=== PATIENT | male | born 1960 | race Caucasian/White ===

== ENCOUNTER 2023-12-29 21:03 | Emergency (ER) | payer SELFPAY ==
[2023-12-29] MEDS ORDERED: LORazepam 2 MG/ML SDV IVPUSH PRN (21:05)
[2023-12-29 21:13] LABS: BASOPHILS ABSOLUTE AUTO 0.06 K/uL (0.00-0.20); BASOPHILS PERCENT AUTO 0.7 % (0.0-1.0); EOSINOPHILS ABSOLUTE AUTO 0.08 K/uL (0.00-0.45); HEMATOCRIT 42.7 % (42.0-52.0); HEMOGLOBIN 14.3 g/dL (14.0-18.0); IMMATURE GRAN ABSOLUTE AUTO 0.11 K/uL (0.00-0.05); IMMATURE GRAN PERCENT AUTO 1.3 % (0.0-0.4); LYMPHOCYTES ABSOLUTE AUTO 1.73 K/uL (1.00-4.80); LYMPHOCYTES PERCENT AUTO 20.7 % (24.0-44.0); MEAN CORPUSCULAR HEMOGLOBIN 33.8 pg (28.0-32.0); MEAN CORPUSCULAR HGB CONC 33.5 g/dL (32.0-36.0); MEAN CORPUSCULAR VOLUME 100.9 fL (83.0-99.0); MEAN PLATELET VOLUME 11.2 fL (9.4-12.4); MONOCYTES ABSOLUTE AUTO 0.67 K/uL (0.00-0.80); NEUTROPHILS ABSOLUTE AUTO 5.71 K/uL (1.80-7.70); NEUTROPHILS PERCENT AUTO 68.3 % (41.0-71.0); PLATELET COUNT,PLT 202 K/uL (150-400); RED BLOOD CELL COUNT 4.23 M/uL (4.52-5.90); WHITE BLOOD CELL COUNT,WBC 8.36 K/uL (3.9-11.3)
[2023-12-29 21:25] LABS: INR 1.04 (0.86-1.11)
[2023-12-29] MEDS ORDERED: Heparin Sodium 5,000 Units/ML Vial IVPUSH ONE (21:25)
[2023-12-29] MEDS ORDERED: Heparin Sodium/0.45% NaCl 25,000 UNITS/250 ML BAG IV SCH (21:30)
[2023-12-29 21:47] LABS: A/G RATIO 0.6 (0.9-1.6); ACETAMINOPHEN <2.0 ug/mL; ALANINE AMINOTRANSFERASE,ALT 24 IU/L (14-63); ALBUMIN 2.8 g/dL (3.4-5.0); ALKALINE PHOSPHATASE 88 U/L (46-116); ASPARTATE AMNIOTRANSFERASE,AST 44 IU/L (15-37); BILIRUBIN TOTAL 0.2 mg/dL (0.2-1.0); BLOOD UREA NITROGEN,BUN 7 mg/dL (7.0-18.0); CALCIUM 8.7 mg/dL (8.5-10.1); CARBON DIOXIDE,CO2 23.1 mmol/L (21.0-32.0); CHLORIDE,CL 98 mmol/L (98-107); EST CRCL DRUG DOSING (CG) 78.44 mL/min; ETHANOL BLOOD MEDICAL 287 mg/dL; GLUCOSE RANDOM 108 mg/dL (74-106); LIPASE 46 U/L (16-77); MAGNESIUM 1.6 mg/dL (1.8-2.4); POTASSIUM,K 4.1 mmol/L (3.5-5.1); PRO B-TYPE NATRIUR PEPT,BNPPRO 826 pg/mL (0-125); PROTEIN TOTAL,TP 7.8 g/dL (6.4-8.2); SALICYLATE 5.6 mg/dL (0.0-20.0); SODIUM,NA 135 mmol/L (136-148)
[2023-12-29] MEDS: Bacitracin Oint 28.35 GM Tube TOP STA (21:47)
[2023-12-29] MEDS: Thiamine 100 MG Tab PO ONE (21:48)
[2023-12-29] MEDS: Folic Acid 1 MG Tab PO ONE (21:48)
[2023-12-29] MEDS: Diphtheria,Pertussis(Acell),Tetanus Vaccine 0.5 ML Syringe IM ONE (21:48)
[2023-12-29] MEDS: Multivitamin Tab PO ONE (21:48)
[2023-12-29] MEDS: Sodium Chloride 0.9% 10 ML Syringe FLUSH PRN (21:49)
[2023-12-29 21:52] LABS: ESTIMATED GFR 84 mL/min (>60)
[2023-12-29] MEDS: Sodium Chloride 0.9% 1,000 ML IV ONE (22:35)
== END 2023-12-29 22:40 | disposition left against medical advice (07) ==
LOC: MW.ED 21:03
DX: S51.811A Laceration without foreign body of right forearm, initial encounter (principal); S51.812A Laceration without foreign body of left forearm, initial encounter; S06.0X9A Concussion with loss of consciousness of unspecified duration, initial encounter; R74.02 Elevation of levels of lactic acid dehydrogenase [LDH]; F10.120 Alcohol abuse with intoxication, uncomplicated; Y90.8 Blood alcohol level of 240 mg/100 ml or more; Z23 Encounter for immunization; W01.0XXA Fall on same level from slipping, tripping and stumbling without subsequent striking against object, initial encounter
CPT/HCPCS: 36415; 70450; 71045; 80053; 80143; 80179; 80307; 82947; 83605; 83690; 83735; 83880; 84484; 85025; 85610; 85730; 90471; 90715; 99285; A9270; J3490